=== PATIENT | male | born 1960 | race Caucasian/White ===

== ENCOUNTER 2023-06-01 10:27 | Emergency (ER) | payer OTHER ==
[~2023-06-01] VITALS: Ht 165.1 cm; Wt 77.2 kg
[2023-06-01 10:37] VITALS: BP 116/60; PULSE 60; RESP 20; TEMP 97.3; O2SAT 97
[2023-06-01 13:03] VITALS: BP 110/54; PULSE 50; RESP 18; TEMP 98; O2SAT 98
== END 2023-06-01 12:58 | disposition home or self-care (01) ==
LOC: MED 10:27
DX: E86.0 Dehydration (principal); R53.1 Weakness; E78.00 Pure hypercholesterolemia, unspecified; Z86.39 Personal history of other endocrine, nutritional and metabolic disease
CPT/HCPCS: 99281

== ENCOUNTER 2023-11-21 10:19 | Emergency (ER) | payer OTHER ==
[~2023-11-21] VITALS: Ht 162.6 cm; Wt 72.3 kg
[2023-11-21 10:32] VITALS: BP 136/73; PULSE 64; RESP 16; TEMP 98.1; O2SAT 97
== END 2023-11-21 11:26 | disposition home or self-care (01) ==
LOC: MED 10:19
DX: I10 Essential (primary) hypertension (principal); E78.5 Hyperlipidemia, unspecified
CPT/HCPCS: 99281